=== PATIENT | male | born 1985 | race Caucasian/White ===

== ENCOUNTER 2019-06-27 16:54 | Emergency (ER) | payer OTHER, SELFPAY ==
[2019-06-27 17:10] VITALS: BP 144/78; PULSE 82; RESP 18; TEMP 36.6; O2SAT 99
--- NOTE | 2019-06-27 17:19 | ED.WOUNDLAC ---
HPI - Wound/Laceration General Chief Complaint: Wound/Laceration Stated Complaint: cut head open Source: patient and family Mode of arrival: ambulatory Limitations: no limitations History of Present Illness HPI narrative: 34-year-old male presents with a laceration to the left right scalp area that occurred earlier today while at a batting cage causing a laceration approximately 7cm and another that was 2cm. Patient had no loss of consciousness no blurry vision currently headaches. Onset (ago): hour(s) Location: scalp Place: outdoors Patient tetanus UTD: Yes Context: accidental Associated symptoms: pain Treatments prior to arrival: bandage Related Data Allergies Allergy/AdvReac Type Severity Reaction Status Date / Time No Known Allergies Allergy Unverified 10/03/10 12:48 Review of Systems Review of Systems: All systems reviewed & are unremarkable except as noted in HPI and below PMFSH Past Medical History Medical History Patient denies medical problems Exam Const: General: no acute distress and alert Orientation/consciousness: patient oriented x3 HENMT: Head: normal to inspection and laceration Other: Laceration to left frontal scalp area, is approximately 7cm in length in the other is 2cm in length Eyes: Conjunctivae: conjunctivae normal Pupils: Equal, round and reactive pupils present EOM: EOMs intact bilaterally Neck: Neck: normal visual inspection and no lymphadenopathy Chest: Chest palpation & inspection: normal inspection of the chest Resp: Effort & Inspection: normal respiratory effort Auscultation: clear to auscultation bilaterally Cardio: Rate: regular rate Rhythm: regular rhythm GI: GI Palp: Yes Soft to palpation Percussion: Yes normal to percussion Auscultation: normal bowel sounds Skin: General skin exam: normal color Rashes: no rashes Neuro: General: patient oriented x3, moves all extremities and no meningeal signs Extrem: General: normal to inspection Psych: Mental Status: mental status grossly normal Procedures Laceration Laceration 1: Date: 06/27/19 Time: 17:23 Site: scalp Side (If applicable): right Size (cm): 9 Description: linear Local Anesthetic: lidocaine 1% Amount of anesthesia used (mL): 5 Pre-repair: irrigated ====== Skin Level ====== Skin layer closed with: alina ( 8 alina placed in total) ====== Subcutaneous Layer ====== ====== Muscle Layer ====== ====== Tendon Layer ====== Critical Care Time Critical Care Time Critical Care Time: No Discharge Plan Discharge Clinical Impression: Laceration Patient Disposition: Home, Self-Care Condition: Stable Instructions: Antibiotic Form, Laceration (ED), Staple Care (ED) Additional Instructions: follow-up with primary care physician approximately 1 week for staple removed. Follow-up/Referrals: Carlos Kennedy M.D. [Primary Care Provider] - Time of Disposition: 17:25
== END 2019-06-27 17:30 | disposition home or self-care (01) ==
PROVIDERS: Emergency Provider Emergency Medicine; PCP Family Medicine
DX: S01.01XA Laceration without foreign body of scalp, initial encounter (principal); W45.8XXA Other foreign body or object entering through skin, initial encounter
CPT/HCPCS: 12004; 99282

== ENCOUNTER 2019-12-16 13:22 | Outpatient (CLI) | payer OTHER, SELFPAY ==
[2019-12-16 22:56] LABS: SARS-CoV-2 RNA PCR Negative
== END 2019-12-16 13:23 | disposition home or self-care (01) ==
LOC: CHSLAB 13:24
PROVIDERS: PCP Family Medicine; Visit Provider Family Medicine
DX: Z20.828 Contact with and (suspected) exposure to other viral communicable diseases (principal)
CPT/HCPCS: 87635; C9803; U0003

== ENCOUNTER 2020-03-18 08:18 | Outpatient (CLI) | payer OTHER, SELFPAY ==
[2020-03-18 10:31] LABS: SARS-CoV-2 Ag Negative (Negative)
[2020-03-20 01:27] LABS: SARS-CoV-2 RNA PCR Positive
== END 2020-03-18 08:19 | disposition home or self-care (01) ==
PROVIDERS: PCP Family Medicine; Visit Provider Family Medicine
DX: U07.1 COVID-19 (principal); R50.9 Fever, unspecified; J02.9 Acute pharyngitis, unspecified
CPT/HCPCS: 87426; C9803; U0003; U0005

== ENCOUNTER 2021-03-08 13:03 | Outpatient (CLI) | payer OTHER, SELFPAY ==
[2021-03-08 17:01] LABS: SARS-CoV-2 RNA PCR Positive (Negative)
== END 2021-03-08 13:04 | disposition home or self-care (01) ==
LOC: CHSLAB 13:05
PROVIDERS: PCP Family Medicine; Visit Provider Family Medicine
DX: U07.1 COVID-19 (principal)
CPT/HCPCS: C9803; U0003; U0005

== ENCOUNTER 2024-01-03 13:55 | Outpatient (RCR) | payer OTHER, SELFPAY ==
--- NOTE | 2024-01-03 14:57 | PTOPEVAL1 ---
Assessment and note entered by Leeanna Weldon, PT Evaluation Information Assessment Status Evaluation Diagnosis s/p R shoulder arthroscopy Other ICD-10 Condition Codes ( S43.432A PT) Onset 12/22/23 Subjective Information Omer Liz reports he had right shoulder surgery on 12/22/23 secondary to a work injury. He had his collar bone shaved, biceps tendon released, and labrum and rotator cuff cleaned up. He was in a sling for 24 hours. He has been performing pendulum exercises, table slides, and wall slides since surgery. 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 He has had soreness in the front of the right shoulder and bicep. He notes the tingling around his right shoulder blade he was experiencing before surgery has mostly subsided. Reported Pain Level Pain Score 5: Self Report Assessment PT Clinical Summary Kilo Liz presents 12 days s/p left shoulder arthroscopy for a labral and rotator cuff debridement, biceps tenodesis, and distal clavicle excision. He has difficulty with lifting, carrying, reaching, performing recreational activities, and performing job duties as an slip operator at [employer]. He objectively demonstrates decreased left shoulder AROM, decreased left shoulder strength, and decreased functional abilities. He will benefit from skilled PT to address these limitations. Plan of Care Interventions Electrical Stimulation,Hot Pack/Cold Pack,Manual Therapy,Neuro Re-education,Patient/Caregiver Educati,Therapeutic Activities,Therapeutic Exercise PT Services Indicated Yes Treatment Frequency and 1 times a week for 4 visits Duration These treatments will address the objective and functional deficits as defined above. The patient will be advanced safely and appropriately in order for the patient to progress towards his/her prior level of function. Additional exercises will be introduced and as well as a comprehensive home exercise program upon discharge, if needed, ?to ensure carryover of functional gains achieved in the clinic. This treatment plan has been reviewed and agreement upon by the patient.
--- NOTE | 2024-01-03 14:57 | OPREHPOC ---
Outpatient Therapy Plan of Care This is a Multidisciplinary Plan of Care that may contain components documented by all disciplines (PT, OT, and ST.) PT Problem 1 PT Problem #1 Knowledge Deficit PT Goal 1 Goal / Goal Update The patient will be independent in a home exercise program. Target Visit 4 PT Problem 2 PT Problem #2 Pain PT Goal 1 Goal / Goal Update The patient will report no greater than 2/10 left shoulder pain with lifting and carrying. Target Visit 8 PT Problem 3 PT Problem #3 Impaired Range of Motion PT Goal 1 Goal / Goal Update The patient will demonstrate 160 degrees of left shoulder flexion, 80 degrees of external rotation, and 90 degrees of internal rotation to improve ROM for daily and job tasks. Target Visit 8 PT Problem 4 PT Problem #4 Impaired Functional Mobil PT Goal 1 Goal / Goal Update The patient will demonstrate 25% or less self perceived disability per the Quick DASH questionnaire. The patient will be able to lift 5# from waist to overhead for 10 repetitions to improve strength for daily and job tasks. Target Visit 8 PT Problem 5 PT Problem #5 Impaired Strength PT Goal 1 Goal / Goal Update The patient will demonstrate 4/5 left shoulder strength to return to previous level of function. Target Visit 8
[2024-01-24 13:54] VITALS: BP_SYST 175
--- NOTE | 2024-01-24 14:41 | OPREHPOC ---
Outpatient Therapy Plan of Care This is a Multidisciplinary Plan of Care that may contain components documented by all disciplines (PT, OT, and ST.) PT Problem 1 PT Problem #1 Knowledge Deficit PT Goal 1 Goal / Goal Update The patient will be independent in a home exercise program. Target Visit 4 Progress Met PT Problem 2 PT Problem #2 Pain PT Goal 1 Goal / Goal Update The patient will report no greater than 2/10 left shoulder pain with lifting and carrying. Target Visit 8 Progress Met PT Problem 3 PT Problem #3 Impaired Range of Motion PT Goal 1 Goal / Goal Update The patient will demonstrate 160 degrees of left shoulder flexion, 80 degrees of external rotation, and 90 degrees of internal rotation to improve ROM for daily and job tasks. -flexion and internal rotation met, external rotation not met but progress towards Target Visit 8 Progress Partially Met PT Problem 4 PT Problem #4 Impaired Functional Mobil PT Goal 1 Goal / Goal Update The patient will demonstrate 25% or less self perceived disability per the Quick DASH questionnaire. The patient will be able to lift 5# from waist to overhead for 10 repetitions to improve strength for daily and job tasks. Target Visit 8 Progress Met PT Problem 5 PT Problem #5 Impaired Strength PT Goal 1 Goal / Goal Update The patient will demonstrate 4/5 left shoulder strength to return to previous level of function. Target Visit 8 Progress Met
--- NOTE | 2024-01-24 14:41 | PTOPPROG ---
Assessment and note entered by Leeanna Weldon, PT Evaluation Information Assessment Status Discharge Diagnosis s/p R shoulder arthoscopy ICD-10 Condition Codes (PT) M25.511 Other ICD-10 Condition Codes ( S43.432A PT) Onset 12/22/23 Subjective Information Omer Liz reports his right shoulder is doing well overall. He still has numbness and tingling on the back of the shoulder which was present before surgery as well. He has been able to perform all daily activities and driving without difficulty. He has also been working with restrictions of no overhead lifting, no lifting more than 5# from waist to shoulder, and no lifting more than 10# from floor to waist, as well as no pushing or pulling without difficulty. He notes occasional pain if he bumps his shoulder on something. Assessment PT Clinical Summary Omer Liz has completed 4 skilled PT visits for left shoulder pain following a shoulder arthroscopy. He is reporting no difficulty with daily and limited duty work tasks. He has been driving without difficulty. He objectively demonstrates improved left shoulder AROM and PROM. Left shoulder AROM is near normal limits with mild limitations with abduction and ER, PROM is full in all directions. Left shoulder strength has improved as well and is between 4/5 and 4+/5 throughout. He has met all goals at this time. He will see his surgeon on 01/29/24 and we anticipate discharge from PT. Plan of Care Interventions Patient/Caregiver Educati,Therapeutic Exercise PT Services Indicated No Treatment Frequency and Discharge Duration These treatments will address the objective and functional deficits as defined above. The patient will be advanced safely and appropriately in order for the patient to progress towards his/her prior level of function. Additional exercises will be introduced and as well as a comprehensive home exercise program upon discharge, if needed, ?to ensure carryover of functional gains achieved in the clinic. This treatment plan has been reviewed and agreement upon by the patient.
== END 2024-01-24 14:53 | disposition home or self-care (01) ==
LOC: CHSPT 13:55
DX: S43.432A Superior glenoid labrum lesion of left shoulder, initial encounter (principal)
CPT/HCPCS: 97110; 97161

== ENCOUNTER 2024-02-06 13:42 | Outpatient (RCR) | payer OTHER, SELFPAY ==
--- NOTE | 2024-02-06 14:36 | OPREHPOC ---
Outpatient Therapy Plan of Care This is a Multidisciplinary Plan of Care that may contain components documented by all disciplines (PT, OT, and ST.) PT Problem 1 PT Problem #1 Knowledge Deficit PT Goal 1 Goal / Goal Update 1. independent and compliant with HEP Target Visit 5 PT Problem 2 PT Problem #2 Pain PT Goal 1 Goal / Goal Update 1. no pain in the L shoulder in the last 2 weeks Target Visit 10 PT Problem 3 PT Problem #3 Impaired Strength PT Goal 1 Goal / Goal Update 1. 5/5 L shoulder strength Target Visit 10 PT Problem 4 PT Problem #4 Impaired Range of Motion PT Goal 1 Goal / Goal Update 1. 165 degrees active L shoulder flexion 2. 90 degrees active L shoulder ER 2. 75 degrees active L shoulder IR Target Visit 10 PT Problem 5 PT Problem #5 Impaired Functional Mobility PT Goal 1 Goal / Goal Update 1. patient to safely lift 75lbs from floor to waist with no pain and good mechanics 2. 20lbs overhead shoulder press x10 reps with the L UE Target Visit 10
--- NOTE | 2024-02-06 14:37 | PTOPEVAL1 ---
Assessment and note entered by JT File, PT Evaluation Information Assessment Status Re-evaluation ICD-10 Condition Codes (PT) Pain in left shoulder M25.512,Encounter for other orthopedic aftercare Z47.89 Other ICD-10 Condition Codes ( S43.432A PT) Onset 09/05/23 Subjective Information patient reports he injured his L shoulder back in August at work (09/05/23). he reports he was pushing down on a strip of copper that was feeding into a machine. he reports he had surgery on 12/22/23 to repair a labral tear, release his biceps, and removal of bone spur/DCE. he then came to skilled outpatient PT for 1 month of rehab and went back to the MD hoping to be release. he is now back in PT to get stronger per the MD. he is on limited duty at work with lifting restrictions at each level of floor, waist, shoulder, overhead. he returns to the [facility] on 03/11/23. Reported Pain Level Pain Score 0: Self Report Assessment PT Clinical Summary mr. hayes is a 38 yo man who presents to skilled PT services for evaluation and treatment of R shoulder weakness following injury at work, and surgery to the R shoulder earlier this year. he has completed one bout of skilled PT since surgery, but was recently given orders to return back to skilled PT by his surgeon to continue to strengthen the L shoulder prior to return to full lifting duties. continued skilled PT is indicated to improve his objective/functional deficits and achieve his full return to work goals. Plan of Care Interventions Electrical Stimulation,Hot Pack/Cold Pack,Manual Lymph Drainage,Manual Therapy,Neuro Re-education, Patient/Caregiver Education,Therapeutic Activities ,Therapeutic Exercise PT Services Indicated Yes Treatment Frequency and 2x weekly for 10 visits Duration These treatments will address the objective and functional deficits as defined above. The patient will be advanced safely and appropriately in order for the patient to progress towards his/her prior level of function. Additional exercises will be introduced and as well as a comprehensive home exercise program upon discharge, if needed, ?to ensure carryover of functional gains achieved in the clinic. This treatment plan has been reviewed and agreement upon by the patient.
--- NOTE | 2024-02-14 15:06 | PCPTNOTE ---
I reviewed the License Pending Therapist's documentation and agree with the findings.
--- NOTE | 2024-02-16 13:04 | PCPTNOTE ---
Cancelled session due to illness.
--- NOTE | 2024-02-26 16:59 | PCPTNOTE ---
Documentation reviewed on this date by the supervising PT. All documentation is accurate.
--- NOTE | 2024-03-08 13:56 | OPREHPOC ---
Outpatient Therapy Plan of Care This is a Multidisciplinary Plan of Care that may contain components documented by all disciplines (PT, OT, and ST.) PT Problem 1 PT Problem #1 Knowledge Deficit PT Goal 1 Goal / Goal Update 1. independent and compliant with HEP Target Visit 5 Progress Met PT Problem 2 PT Problem #2 Pain PT Goal 1 Goal / Goal Update 1. no pain in the L shoulder in the last 2 weeks Target Visit 10 Progress Partially Met PT Problem 3 PT Problem #3 Impaired Strength PT Goal 1 Goal / Goal Update 1. 5/5 L shoulder strength Target Visit 10 Progress Met PT Problem 4 PT Problem #4 Impaired Range of Motion PT Goal 1 Goal / Goal Update 1. 165 degrees active L shoulder flexion 2. 90 degrees active L shoulder ER 2. 75 degrees active L shoulder IR Target Visit 10 Progress Met PT Problem 5 PT Problem #5 Impaired Functional Mobility PT Goal 1 Goal / Goal Update 1. patient to safely lift 75lbs from floor to waist with no pain and good mechanics 2. 20lbs overhead shoulder press x10 reps with the L UE Target Visit 10 Progress Partially Met
--- NOTE | 2024-03-08 13:57 | PTOPDC ---
Assessment and note entered by Maddy Magana, PT Evaluation Information Assessment Status Discharge ICD-10 Condition Codes (PT) Pain in left shoulder M25.512,Encounter for other orthopedic aftercare Z47.89 Other ICD-10 Condition Codes ( S43.432A PT) Onset 09/05/23 Subjective Information Pt reports his shoulder is generally pain-free except when reaching laterally and across his body . Pain gets up to 5/10 with these movements and is localized to the superior/anterior shoulder. He notes occasional sleep interference if he sleeps with his weight on the left shoulder. Does not note any work interferences, is still on lifting restrictions at this time but feels like his shoulder has gotten a lot stronger and he's ready to get back to full duty. Reported Pain Level Pain Score 0: Self Report Assessment PT Clinical Summary Mr. Liz has attended 9 skilled PT visits to improve strength and functional use of his L shoulder following labral repair, biceps tendon release and bone spur removal. He has made excellent progress in physical therapy with noted improvements in strength, ROM, and functional use of the arm. He feels like he has gotten stronger and is ready to get back to full duties at work pending release from his doctor. Mr. Liz' QuickDASH score has improved to 13.6%, he has met nearly all his therapeutic goals and is also independent with his HEP, therefore skilled PT services no longer indicated. Plan of Care PT Services Indicated Yes
== END 2024-03-08 14:11 | disposition home or self-care (01) ==
LOC: CHSPT 13:42
DX: S43.432A Superior glenoid labrum lesion of left shoulder, initial encounter (principal)
CPT/HCPCS: 97110; 97161